=== PATIENT | female | born 1985 ===

== ENCOUNTER 2018-12-06 11:58 | Emergency (ER) | payer MEDICAID, OTHER ==
[~2018-12-06] VITALS: Ht 160 cm; Wt 99.8 kg
[2018-12-06 11:59] VITALS: BP 150/98
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
[2018-12-06] MEDS ORDERED: NKM (12:00)
--- NOTE | 2018-12-06 13:02 | NUR ---
ED Nurse Note: Message left to forensic social worker, Nabila @ [phone].
--- NOTE | 2018-12-06 13:08 | NUR ---
ED Nurse Note: Spoke to Nayana social media campaign manager and will come down and see patient.
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
--- NOTE | 2018-12-06 13:20 | NUR ---
ED Nurse Note: tipple worker, Nayana at bedside.
[2018-12-06 14:00] VITALS: BP 138/86
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
[2018-12-06 14:16] VITALS: BP 136/76
--- NOTE | 2018-12-06 14:16 | NUR ---
ER DISCHARGE NOTE: Patient is cleared to be discharged per ERMD, pt is aox4, on room air, with stable vital signs. pt was given dc instructions, pt was able to verbalize understanding, pt id band removed. pt is able to ambulate with steady gait. pt took all belongings. Accompanied by family members
== END 2018-12-06 14:16 | disposition home or self-care (01) ==
LOC: EDBD 11:58 → EMR 12:34
DX: S20.412A Abrasion of left back wall of thorax, initial encounter (principal); S40.212A Abrasion of left shoulder, initial encounter; Y04.8XXA Assault by other bodily force, initial encounter; Y92.9 Unspecified place or not applicable; M54.2 Cervicalgia; Z88.8 Allergy status to other drugs, medicaments and biological substances; W49.09XA Other specified item causing external constriction, initial encounter
CPT/HCPCS: 99281

== ENCOUNTER 2019-01-31 02:54 | Emergency (ER) | payer OTHER ==
[~2019-01-31] VITALS: Ht 160 cm; Wt 99.8 kg
[~2019-01-31 02:54] MED LIST: NKM
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
[2019-01-31 03:08] VITALS: BP 145/86
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
[2019-01-31] MEDS ORDERED: Acetaminophen 500mg (ES) tab PO ONE (03:30)
[2019-01-31] MEDS ORDERED: Neosporin Oint Ud Pkt TOP ONE (03:30)
[2019-01-31] MEDS: Tetanus/Diptheria/Pertussis IM ONE ×2 (03:38→03:52)
[2019-01-31 03:47] LABS: APPEARANCE,URINE CLEAR; BILIRUBIN, URINE NEGATIVE (NEGATIVE); COLOR,URINE PALE YELLOW; GLUCOSE, URINE (UA) NEGATIVE (NEGATIVE); KETONES,URINE NEGATIVE (NEGATIVE); LEUKOCYTE ESTERASE ,URINE NEGATIVE (NEGATIVE); NITRITE,URINE NEGATIVE (NEGATIVE); PH,URINE 6.5 (4.5-8.0); PROTEIN,URINE NEGATIVE (NEGATIVE); UROBILINOGEN,URINE NORMAL MG/DL (0.0-1.0)
--- NOTE | 2019-01-31 03:52 | NUR ---
ED Nurse Note: pt refused tdap, ermd notified.
[2019-01-31] MEDS ORDERED: ROBAXIN500 MG PO (05:32)
[2019-01-31] MEDS ORDERED: TYLENOL325 MG ORAL (05:32)
[2019-01-31] MEDS ORDERED: TRAMADOL HCL50 MG ORAL (05:32)
[2019-01-31] MEDS ORDERED: IBUPROFEN600 MG ORAL (05:32)
[2019-01-31 05:40] VITALS: BP 140/85
--- NOTE | 2019-01-31 05:40 | NUR ---
ED Nurse Note: Pt cleared to be d/c per ERMD, pt discharge and aftercare instruction w/ prescription provided, pt education done via discussion and handout, pt advised to follow up with pcp or return to ed if changes in condition, pt verbalized understanding and agrees with plan, vss, ambulatory w/ steady gait left w/ all belongings. pt accompanied by family member, arm sling applied.
--- NOTE | 2019-01-31 13:41 | Diagnostic Imaging Report ---
Indication: Right shoulder pain COMPARISON: None Findings: 3 views of the right shoulder were obtained. No acute fractures, malalignment, erosions or periostitis are identified. Soft tissues are unremarkable. Impression: Negative for acute injury
== END 2019-01-31 05:40 | disposition home or self-care (01) ==
LOC: EDBD 02:54 → EMR 03:08
DX: S40.011A Contusion of right shoulder, initial encounter (principal); S39.012A Strain of muscle, fascia and tendon of lower back, initial encounter; F17.200 Nicotine dependence, unspecified, uncomplicated; V49.9XXA Car occupant (driver) (passenger) injured in unspecified traffic accident, initial encounter; Y92.411 Interstate highway as the place of occurrence of the external cause; Z88.1 Allergy status to other antibiotic agents; Z91.018 Allergy to other foods
CPT/HCPCS: 81003; 81025; 90471; 90715; 99283